=== PATIENT | male | born 1980 | race Caucasian/White ===

== ENCOUNTER 2020-11-23 07:02 | Day surgery (SDC) | payer OTHER ==
[~2020-11-23] VITALS: Ht 170.2 cm; Wt 78.4 kg
[~2020-11-23 07:02] MED LIST: ACETAMINOPHEN 500 MG TABLET PO PRN; ATOR20TA58 PO; CETI10TA74 PO; CHOL400C PO; DAPA10TA PO; DIPH-426 PO; FEXO180T16 PO; LISI20TA18 PO; METF-658 PO; METF10007 PO; MONT10TA49 PO; MULT-445 PO; OMEP20TA63 PO; OXYC1TAB15 PO; SEMA1PEN SQ; SIMV40TA18 PO; ceFAZolin SODIUM IV Push 1 GM VIAL. IVP PRN
[2020-11-23] MEDS ORDERED: ONDANSETRON PF 4 MG/2 ML VIAL. ONE (07:11)
[2020-11-23] MEDS ORDERED: LIDOCAINE 2% PF 5 ML VIAL. ONE (07:11)
[2020-11-23] MEDS ORDERED: PROPOFOL 10 MG/ML (20ML) VIAL. IV ONE (07:11)
[2020-11-23] MEDS ORDERED: DEXAMETHASONE SOD PHOS 4 MG/ML VIAL ONE (07:11)
[2020-11-23] MEDS ORDERED: ROCURONIUM 50 MG/5 ML VIAL. ONE (07:11)
[2020-11-23 07:26] VITALS: BP 130/71
[2020-11-23] MEDS ORDERED: INSULIN LISPRO 100 UNIT/ML 3ML VIAL for OP,RR ONLY. SQ PRN (07:30)
[2020-11-23] MEDS ORDERED: SUCCINYLCHOLINE 200 MG/10 ML VIAL. ONE (07:41)
--- NOTE | 2020-11-23 07:42 | PDOC1 ---
History and Physical Date of Admission Date of Admission DATE: 11/23/20 TIME: 07:39 Identification/Chief Complaint Chief Complaint Abdominal pain Source Source: Patient History of Present Illness History of Present Illness 39-year-old male with complaints of a painful bulge just above into the left of his umbilicus for approximately 2 years Past Medical History Cardiovascular: HTN, Hyperlipidemia Pulmonary: No pertinent hx GI: No pertinent hx Heme/Onc: No pertinent hx Hepatobiliary: No pertinent hx Psych: No pertinent hx Rheumatologic: No pertinent hx Infectious disease: No pertinent hx ENT: No pertinent hx Renal/: No pertinent hx Endocrine: Diabetes Dermatology: No pertinent hx Past Surgical History Past Surgical History: Cholecystectomy, Other (EGD wisdom teeth extraction) Family History Family History: No Significant Social History Smoke: No ALCOHOL: none Drugs: None Current Medications Current Medications Current Medications Cefazolin Sodium (Ancef) 1 gm 1X PREOP PRN IVP PRIOR TO PROCEDURE; Start 11/23/20 at 06:00; Stop 11/23/20 at 18:00 Acetaminophen (Tylenol) 1,000 mg 1X PREOP PRN PO PRIOR TO PROCEDURE Last administered on 11/23/20at 07:33; Start 11/23/20 at 06:00; Stop 11/23/20 at 18:00 Lidocaine HCl (Lidocaine Pf 2% Vial) 5 ml STK-MED ONCE .ROUTE ; Start 11/23/20 at 07:11; Stop 11/23/20 at 07:11; Status DC Propofol (Diprivan) 200 mg STK-MED ONCE IV ; Start 11/23/20 at 07:11; Stop 11/23/20 at 07:11; Status DC Ondansetron HCl (Zofran) 4 mg STK-MED ONCE .ROUTE ; Start 11/23/20 at 07:11; Stop 11/23/20 at 07:11; Status DC Dexamethasone Sodium Phosphate (Decadron) 4 mg STK-MED ONCE .ROUTE ; Start 11/23/20 at 07:11; Stop 11/23/20 at 07:11; Status DC Rocuronium [place] (Zemuron) 50 mg STK-MED ONCE .ROUTE ; Start 11/23/20 at 07:11; Stop 11/23/20 at 07:11; Status DC Insulin Human Lispro (HumaLOG VIAL for OP,RR ONLY) 0-10 units PRN Q1HR PRN SQ PER PROTOCOL; Start 11/23/20 at 07:30; Stop 11/24/20 at 07:29 Ringer's Solution 1,000 ml @ 100 mls/hr Q10H IV Last administered on 11/23/20at 07:34; Start 11/23/20 at 07:45 Active Scripts Active Reported Vitamin D3 (Cholecalciferol (Vitamin D3)) 10 Mcg Capsule 10 Mcg PO DAILY Multivitamins (Multivitamin) 1 Each Tablet 1 Each PO DAILY Montelukast Sodium Tablet (Montelukast Sodium) 10 Mg Tablet 10 Mg PO DAILY Zyrtec (Cetirizine Hcl) 10 Mg Tablet 10 Mg PO HS Atorvastatin Calcium 20 Mg Tablet 20 Mg PO HS Farxiga (Dapagliflozin Propanediol) 10 Mg Tablet 10 Mg PO DAILY Metformin Hcl Er (Metformin Hcl) 500 Mg Tab.er.24h 500 Mg PO BIDWMEALS Ozempic (Semaglutide) 1 Mg/0.75 Ml Pen.injctr 1 Mg SQ WEEKLY Prilosec Otc (Omeprazole Magnesium) 20 Mg Tablet.dr 1 Tab PO DAILY Lisinopril 20 Mg Tablet 1 Tab PO DAILY Allergies Allergies: Coded Allergies: No Known Drug Allergies (Unverified , 11/23/20) ROS Gastrointestinal: Yes Abdominal Pain Physical Exam General: Alert, Oriented X3, Cooperative, No acute distress HEENT: Atraumatic, EOMI Lungs: Clear to auscultation, Normal air movement Heart: RRR, no murmurs Abdomen: Normal bowel sounds, Soft, Other (Abdominal bulge next to the umbilicus tender to palpation no skin changes) Rectal Exam: not examined Extremities: No edema Skin: No significant lesion Neuro: Normal speech Vitals Vitals Vital Signs Date Time Temp Pulse Resp B/P (MAP) Pulse Ox O2 Delivery O2 Flow Rate FiO2 11/23/20 07:30 97.4 107 18 130/71 100 Room Air 97.4 Labs Labs Laboratory Tests Test 11/23/20 07:27 Glucose (Fingerstick) 140 mg/dL (70-99) Laboratory Tests Test 11/23/20 07:27 Glucose (Fingerstick) 140 mg/dL (70-99) VTE Prophylaxis Ordered VTE Prophylaxis Devices: Yes VTE Pharmacological Prophylaxi: Contraindicated Assessment/Plan Assessment/Plan Ventral incisional hernia plan robotic laparoscopic repair with mesh Justifications for Admission Other Justification YASMANI CHACON MD Nov 23, 2020 07:42
[2020-11-23] MEDS ORDERED: INSULIN LISPRO 100 UNIT/ML 3ML VIAL for OP,RR ONLY. SQ ONE (07:45)
[2020-11-23] MEDS ORDERED: IV RINGERS,LACTATED 1000ML 1,000 ML IV SCH ×2 (07:45→09:45)
[2020-11-23] MEDS ORDERED: BUPIVACAINE-EPI 0.25% 30 ML VIAL KIT. ONE (07:51)
[2020-11-23] MEDS ORDERED: MINERAL OIL for SURGERY 10 ML VIAL. MC ONE (07:51)
[2020-11-23] MEDS ORDERED: SEVOFLURANE 61 TO 120 MINUTES. IH ONE (08:25)
[2020-11-23] MEDS ORDERED: KETOROLAC 30 MG/ML VIAL. ONE (08:25)
[2020-11-23] MEDS ORDERED: ceFAZolin SODIUM IV Push 1 GM VIAL. IVP ONE (08:34)
[2020-11-23] MEDS ORDERED: NEOSTIGMINE METHYLSULFATE 5 MG/5 ML SYRINGE. ONE (08:51)
[2020-11-23] MEDS ORDERED: GLYCOPYRROLATE 1 MG/5 ML VIAL. ONE (08:51)
[2020-11-23] MEDS ORDERED: fentaNYL PF VIAL 100 MCG/2 ML VIAL ONE ×2 (08:52→09:45)
--- NOTE | 2020-11-23 09:22 | PDOC4 ---
Operative Note Operative Note Date: November 232020 at 09 19 Preoperative diagnosis: Incisional hernia Postoperative diagnosis: Same Procedure: Robotic assisted laparoscopic incisional hernia repair with mesh Surgeon: Arcenio Specimen: None Dictation: Patient is 39-year-old gentleman who had a single port laparoscopic cholecystectomy and subsequently developed a hernia at this site. The procedure of robotic assisted laparoscopic incisional hernia repair with mesh was explaine d to the patient in detail all risk benefits were also discussed including bleeding infection injury to intra-abdominal contents possible necessitating further open operations alternatives to this procedure also discussed with the patient who seemed to understand and gave both verbal and written consent to have the procedure performed. Patient was taken to the operating room placed in the supine position general anesthesia was initiated once patient was sleeping intubated his abdomen was prepped and draped usual sterile fashion using ChloraPrep. An area in the left upper quadrant was injected with quarter percent Marcaine with epinephrine incision was made 11 blade scalpel and a 5 mm Visiport was placed under direct visualization in the abdomen creating pn eumoperitoneum once this was complete the abdomen was inspected with 5 mm scope showed that there was incarcerated omentum to the incisional hernia. A 8 mm da David port was placed in the left midabdomen and an 8 mm da David port was placed in the left lower abdomen and the 5 mm port was changed out for 8 mm da David port in the left upper quadrant. The da David robot was brought and docked all port sites surgeon went to the robotic console using a grasper and Endo Enid scissors the incarcerated omentum was reduced out of the hernia defect. The hernia defect was then closed with a running 2 OV lock nonabsorbable suture. The hernia defect was then covered with Bard ventral light ST mesh which was sewn into place with a circumferential 2 OV lock absorbable suture. Once this was complete sutures removed from the abdomen the da David robot was undocked from all port sites and removed from the operative field the ports were all removed pneumoperitoneum was reduced all port sites were closed with 4-0 subcuticular Monocryl Mastisol Steri-Strips and island dressings were applied. Patient was awakened and extubated in the operating jacqueline m taken to recovery in stable condition all sponge instrument needle counts listed as correct estimated blood loss 5 mL YASMANI CHACON MD Nov 23, 2020 09:22
--- NOTE | 2020-11-23 09:24 | DISCH ---
DISCHARGE INSTRUCTIONS Condition on Discharge Condition on Discharge: Stable Activity After Discharge Activity Instructions for Disc: Avoid exertion Other activity instructions: No lifting more than 20 pounds for 2 weeks Diet after Discharge Diet after Discharge: Regular Wound Incision Care Other wound/incision instructi: Stefany shower in 24 hours Contacting the after DC Call your doctor for: If your condition worsens Follow-Up Follow up with: Dr. Chacon in 2-week YASMANI CHACON MD Nov 23, 2020 09:23
[2020-11-23] MEDS ORDERED: PROCHLORPERAZINE 10 MG/2 ML VIAL. ONE (09:35)
[2020-11-23] MEDS ORDERED: fentaNYL PF VIAL 100 MCG/2 ML VIAL IVP PRN (09:45)
[2020-11-23] MEDS ORDERED: PROCHLORPERAZINE 10 MG/2 ML VIAL. IVP PRN (09:45)
[2020-11-23] MEDS ORDERED: MORPHINE SULFATE 2 MG/ML VIAL. IVP PRN (09:45)
[2020-11-23] MEDS ORDERED: HYDROmorphone 2 MG/ML VIAL IVP PRN (09:45)
[2020-11-23] MEDS: fentaNYL PF VIAL 100 MCG/2 ML VIAL IVP PRN ×2 (09:47→09:56)
[2020-11-23] MEDS ORDERED: oxyCODONE/APAP 5/325 1 TAB TABLET PO ONE (10:00)
[2020-11-23 10:29] VITALS: BP 98/56
== END 2020-11-23 11:50 | disposition home or self-care (01) ==
LOC: SURG 07:02
PROVIDERS: ATTEND Surgery
DX: K43.0 Incisional hernia with obstruction, without gangrene (principal); I10 Essential (primary) hypertension; E78.00 Pure hypercholesterolemia, unspecified; E11.9 Type 2 diabetes mellitus without complications; K21.9 Gastro-esophageal reflux disease without esophagitis; Z90.49 Acquired absence of other specified parts of digestive tract; Z98.890 Other specified postprocedural states; Z79.899 Other long term (current) drug therapy; Z79.84 Long term (current) use of oral hypoglycemic drugs
CPT/HCPCS: 49655; 82962; J0330; J0690; J0780; J1100; J1885; J2405; J2704; J2710; J3010; J3490; S2900; A4364; A4657; A4930; A6219; C1781; J1815